=== PATIENT | male | born 1955 | race African-American/Black ===

== ENCOUNTER 2016-05-18 17:29 | Emergency (ER) | payer MEDICAID, OTHER ==
[~2016-05-18] VITALS: Ht 172.7 cm; Wt 70.0 kg
[~2016-05-18 17:29] MED LIST: GABA600T PO; HYDR-519 PO; HYDR2TAB34 PO; ZOLP10TA2 PO
[2016-05-18] MEDS ORDERED: METHYLPREDNISOLONE SOD SUCC 125 MG/2 ML VIAL IV STA (18:29)
[2016-05-18] MEDS ORDERED: ASPIRIN 81MG TABLET PO ONE (18:30)
[2016-05-18 18:52] LABS: BASOPHILS % 0.4 % (0.0-2.0); DIFFERENTIAL COMMENT 0; EOSINOPHILS % 0.6 % (0.0-5.0); HEMOGLOBIN. 11.4 g/dL (14.0-18.0); MEAN CORPUSCULAR HEMOGLOBIN 25.7 pg (28.0-32.0); MEAN CORPUSCULAR HGB CONC 32.6 g/dL (31.0-37.0); MEAN CORPUSCULAR VOLUME 78.8 fL (80.0-94.0); MEAN PLATELET VOLUME 9.3 fl (7.4-10.4); MONOCYTES % 11.5 % (2.0-8.0); NEUTROPHILS % 35.5 % (40.0-76.0); PLATELET 127 x1000/uL (130-400); RED BLOOD CELL COUNT 4.45 mill/uL (4.7-6.1); WHITE BLOOD COUNT 4.7 x1000/uL (4.5-11.0)
[2016-05-18 18:58] LABS: INR 1.1; PROTHROMBIN TIME 11.4 sec
[2016-05-18] MEDS: ALBUTEROL (0.083%) 2.5MG/3ML NEB HHN SCH ×3 (18:59→19:45)
[2016-05-18 19:07] LABS: ALANINE AMINOTRANSFERASE 75 IU/L (13-61); ALBUMIN 2.6 g/dL (3.4-5.0); ANION GAP 15; CALCIUM 7.9 mg/dL (8.5-10.1); CARBON DIOXIDE 24 mEq/L (21-32); CHLORIDE 108 mEq/L (98-107); ETHANOL BLOOD 20 mg/dL; INDEX HEMOLYSI 1 (1-3); INDEX ICTERIC 1 (1-4); INDEX LIPEMIC 1 (1-3); LIPASE 133 IU/L (73-393); NT PRO B-TYPE NATRIURETIC PEP 189 pg/mL (5-125); TROPONIN I < 0.02 ng/mL (0.00-0.04); UREA NITROGEN BLOOD 17 mg/dL (7-21); eGFR > 60 mL/min (>60)
[2016-05-18] MEDS ORDERED: ALBUTEROL (0.5%) 2.5MG/0.5ML NEB HHN ONE (19:22)
[2016-05-18 22:24] LABS: *AMPHETAMINES SCREEN URINE NEGATIVE (NEGATIVE); *BARBITURATES SCREEN URINE NEGATIVE (NEGATIVE); *BENZODIAZEPINES SCREEN URINE NEGATIVE (NEGATIVE); *COCAINE SCREEN URINE PRESUMTIVE POSITIVE (NEGATIVE); CANNABINOID URINE SCREEN PRESUMTIVE POSITIVE (NEGATIVE); ECSTASY MDMA SCREEN URINE NEGATIVE (NEGATIVE); METHADONE URINE SCREEN NEGATIVE (NEGATIVE); OPIATES URINE SCREEN NEGATIVE (NEGATIVE); PHENCYCLIDINE URINE SCREEN PRESUMTIVE POSITIVE (NEGATIVE)
[2016-05-19 08:14] VITALS: BP 124/72
== END 2016-05-19 11:52 | disposition home or self-care (01) ==
LOC: ER 17:49
DX: J44.1 Chronic obstructive pulmonary disease with (acute) exacerbation (principal); I12.0 Hypertensive chronic kidney disease with stage 5 chronic kidney disease or end stage renal disease; E11.9 Type 2 diabetes mellitus without complications; J45.909 Unspecified asthma, uncomplicated; N28.89 Other specified disorders of kidney and ureter; Z89.611 Acquired absence of right leg above knee
CPT/HCPCS: 36415; 71010; 80053; 80305; 83690; 83880; 84484; 85025; 85610; 93005; 96374; 99285; G0482; J2930; J7611; Z7610